=== PATIENT | male | born 1940 | race Caucasian/White ===

== ENCOUNTER → 2016-05-31 | Outpatient (REF) | LOC: ZLAB.WCH 10:53 | DX: Z01.89 Encounter for other specified special examinations (principal) ==

== ENCOUNTER 2020-02-20 11:15 | Outpatient (RCR) | payer MEDICARE, BC | END 2020-03-05 | disposition home or self-care (01) | LOC: WSST | DX: R41.89 Other symptoms and signs involving cognitive functions and awareness (principal) ==

== ENCOUNTER 2020-03-19 11:15 | Outpatient (RCR) | payer MEDICARE, BC | END 2020-03-26 | disposition home or self-care (01) | LOC: WSST | DX: R41.81 Age-related cognitive decline (principal) ==

== ENCOUNTER 2020-06-18 11:15 | Outpatient (RCR) | payer MEDICARE, BC | END 2020-06-26 | disposition home or self-care (01) | LOC: WSST | DX: R41.841 Cognitive communication deficit (principal) ==

== ENCOUNTER 2020-10-01 11:15 | Outpatient (RCR) | payer MEDICARE, BC | END 2020-10-02 | disposition home or self-care (01) | LOC: WSST | DX: R41.89 Other symptoms and signs involving cognitive functions and awareness (principal) ==

== ENCOUNTER 2021-01-07 11:15 | Outpatient (RCR) | payer MEDICARE, BC | END 2021-01-08 | disposition home or self-care (01) | LOC: WSST | DX: R41.841 Cognitive communication deficit (principal) ==

== ENCOUNTER 2021-03-05 07:37 | Day surgery (SDC) | payer MEDICARE, BC ==
[~2021-03-05] VITALS: Ht 175.3 cm; Wt 86.2 kg
[2021-03-05] VITALS (13 sets, daily range): BP systolic 120–150; BP diastolic 72–95; PULSE 70–87; TEMP 97.8
[2021-03-05 08:18] LABS: HEMATOCRIT 45.6 % (42.0-52.0); MEAN CELL VOLUME 84 fl (80.0-100.0); MEAN CORPUSCULAR HEMOGLOBIN 28 pg (27.0-31.0); MEAN CORPUSCULAR HGB CONC 33 g/dl (33.0-37.0); MEAN PLATELET VOLUME 9.9 fl (7.4-10.4); PLATELET COUNT 227 K/mm3 (130-400); RED BLOOD COUNT 5.42 M/mm3 (4.20-5.60); REDCELL DISTRIBUTION WIDTH-CV 13.4 % (11.5-14.5)
[2021-03-05 08:28] LABS: INR 1.1 (0.8-3.0); PROTHROMBIN TIME 11.7 SECONDS (9.7-12.8)
[2021-03-05 08:30] LABS: PARTIAL THROMBOPLASTIN TIME 31.2 SECONDS (26.0-37.0)
[2021-03-05 08:36] LABS: ALBUMIN 4.1 gm/dL (3.4-4.8); BILIRUBIN,TOTAL 0.5 mg/dL (0.2-1.2); CALCIUM 9.6 mg/dL (8.4-10.2); CREATININE, serum 1.08 mg/dL (0.72-1.25); MAGNESIUM 1.9 mg/dL (1.6-2.6); POTASSIUM 4.6 mmol/L (3.5-4.5)
[2021-03-05] MEDS ORDERED: ALPHAGAN P 15 M15 ML OU (08:39)
[2021-03-05] MEDS ORDERED: SINEMET 25/101 UDTAB PO (08:39)
[2021-03-05] MEDS ORDERED: TRULICITY1.5 MG/0.5 SQ (08:40)
[2021-03-05] MEDS ORDERED: RAZADYNE8 MG PO (08:41)
[2021-03-05] MEDS ORDERED: DIABETA 5MG5 MG/TAB PO (08:42)
[2021-03-05] MEDS ORDERED: XALATAN EYE DROPS OD (08:42)
[2021-03-05] MEDS ORDERED: SYNTHROID0.137 MG PO (08:43)
[2021-03-05] MEDS ORDERED: GLUCOPHAGE1000 MG PO (08:44)
[2021-03-05] MEDS ORDERED: NAMENDA 10MG TA10 MG PO (08:44)
[2021-03-05] MEDS ORDERED: EFFEXOR-XR150 MG PO (08:45)
--- NOTE | 2021-03-05 09:52 | NUR ---
SEE MERGE FOR ALL MEDICATION ADMINISTRATION TIMES/DOSAGES AND INTRA/POST SEDATION ASSESSMENTS.
--- NOTE | 2021-03-05 10:02 | NUR ---
Report from Muriel RN. Transferred by bed from [employer]. Alert and oriented, denies pain and needs at this time. 12 cc air to right Tband, good pulses and cap refill < 3 secs noted. VSS. bedside.
--- NOTE | 2021-03-05 12:47 | NUR ---
All air out of right Tband. Site started to bleed. 12 cc air put back into band. Bleeding stopped will try again in one hour
--- NOTE | 2021-03-05 15:25 | NUR ---
Right Tband released of 12 cc air and dressing applied with tband applied and also splint per wifes request. INT discontinued intact. Ambulating with one assist to bathroom
--- NOTE | 2021-03-05 15:30 | NUR ---
Discharge instructions given to . Transferred to private car by celestino
== END 2021-03-05 15:30 | disposition home or self-care (01) ==
LOC: COL.CAR 07:37
PROVIDERS: Internal Medicine Cardiovascular Disease
DX: R07.89 Other chest pain (principal); R94.39 Abnormal result of other cardiovascular function study; E78.2 Mixed hyperlipidemia; E11.22 Type 2 diabetes mellitus with diabetic chronic kidney disease; N18.2 Chronic kidney disease, stage 2 (mild); G47.33 Obstructive sleep apnea (adult) (pediatric); E03.9 Hypothyroidism, unspecified; E66.9 Obesity, unspecified; G30.1 Alzheimer's disease with late onset; G20 Parkinson's disease; H91.93 Unspecified hearing loss, bilateral; F02.80 Dementia in other diseases classified elsewhere, unspecified severity, without behavioral disturbance, psychotic disturbance, mood disturbance, and anxiety; Z79.890 Hormone replacement therapy; Z79.82 Long term (current) use of aspirin; Z97.4 Presence of external hearing-aid; Z68.29 Body mass index [BMI] 29.0-29.9, adult
CPT/HCPCS: J1644; J2250; J3010; Q9967

== ENCOUNTER 2021-03-11 11:15 | Outpatient (RCR) | payer MEDICARE, BC ==
[~2021-03-11 11:15] MED LIST: ALPHAGAN P 15 M15 ML OU; DIABETA 5MG5 MG/TAB PO; EFFEXOR-XR150 MG PO; GLUCOPHAGE1000 MG PO; NAMENDA 10MG TA10 MG PO; RAZADYNE8 MG PO; SINEMET 25/101 UDTAB PO; SYNTHROID0.137 MG PO; TRULICITY1.5 MG/0.5 SQ; XALATAN EYE DROPS OD
== END 2021-03-22 | disposition home or self-care (01) ==
LOC: WSST
DX: R41.841 Cognitive communication deficit (principal)

== ENCOUNTER → 2021-04-22 | Outpatient (RCR) | payer MEDICARE, BC | END | disposition home or self-care (01) | LOC: WSST | DX: R41.841 Cognitive communication deficit (principal) ==

== ENCOUNTER → 2021-05-20 | Outpatient (RCR) | payer MEDICARE, BC | END | disposition home or self-care (01) | LOC: WSST | DX: R41.81 Age-related cognitive decline (principal) ==

== ENCOUNTER 2021-07-15 11:15 | Outpatient (RCR) | payer MEDICARE, BC | END 2021-07-20 | disposition home or self-care (01) | LOC: WSST | DX: R41.841 Cognitive communication deficit (principal) ==

== ENCOUNTER 2021-08-12 11:15 | Outpatient (RCR) | payer MEDICARE, BC | END 2021-08-20 | disposition home or self-care (01) | LOC: WSST | DX: R41.841 Cognitive communication deficit (principal) ==

== ENCOUNTER 2021-09-16 11:15 | Outpatient (RCR) | payer MEDICARE, BC | END 2021-09-19 | disposition still patient (30) | LOC: WSST | DX: R41.841 Cognitive communication deficit (principal) ==

== ENCOUNTER 2021-10-07 11:15 | Outpatient (RCR) | payer MEDICARE, BC | END 2021-10-20 | disposition home or self-care (01) | LOC: WSST | DX: R41.841 Cognitive communication deficit (principal) ==

== ENCOUNTER 2021-11-18 11:15 | Outpatient (RCR) | payer MEDICARE, BC | END 2021-11-20 | disposition home or self-care (01) | LOC: WSST | DX: R41.841 Cognitive communication deficit (principal) ==

== ENCOUNTER 2022-04-21 11:15 | Outpatient (RCR) | payer MEDICARE, BC | END 2022-04-22 | disposition home or self-care (01) | LOC: WSST | DX: R41.841 Cognitive communication deficit (principal) ==

== ENCOUNTER 2022-05-05 11:15 | Outpatient (RCR) | payer MEDICARE, BC | END 2022-05-20 | disposition home or self-care (01) | LOC: WSST | DX: R41.841 Cognitive communication deficit (principal) ==

== ENCOUNTER 2022-06-16 11:15 | Outpatient (RCR) | payer MEDICARE, BC | END 2022-06-20 | disposition home or self-care (01) | LOC: WSST | DX: G20 Parkinson's disease (principal); F02.80 Dementia in other diseases classified elsewhere, unspecified severity, without behavioral disturbance, psychotic disturbance, mood disturbance, and anxiety; G30.1 Alzheimer's disease with late onset ==

== ENCOUNTER 2022-07-14 11:15 | Outpatient (RCR) | payer MEDICARE, BC | END 2022-07-20 | disposition home or self-care (01) | LOC: WSST | DX: R41.841 Cognitive communication deficit (principal) ==

== ENCOUNTER 2022-08-11 11:15 | Outpatient (RCR) | payer MEDICARE, BC | END 2022-08-20 | disposition home or self-care (01) | LOC: WSST | DX: G20 Parkinson's disease (principal); G30.1 Alzheimer's disease with late onset; F02.80 Dementia in other diseases classified elsewhere, unspecified severity, without behavioral disturbance, psychotic disturbance, mood disturbance, and anxiety ==